=== PATIENT | female | born 1960 | race Caucasian/White ===

== ENCOUNTER 2016-09-23 11:40 | Day surgery (SDC) | payer OTHER ==
[~2016-09-23] VITALS: Ht 142.2 cm; Wt 64.5 kg
[2016-09-23 12:10] VITALS: Ht 142.2 cm; Wt 64.5 kg
[2016-09-23] MEDS ORDERED: [UNRECOGNIZED DRUG - OTHER] (12:36)
[2016-09-23] MEDS ORDERED: KETO75CA PO (12:36)
[2016-09-23] MEDS ORDERED: FERR324T11 PO (12:36)
[2016-09-23] MEDS ORDERED: COZAR (12:36)
[2016-09-23] MEDS ORDERED: GABA250S4 PO (12:36)
[2016-09-23] MEDS ORDERED: OMEP40CA6 PO (12:36)
[2016-09-23] MEDS ORDERED: ASPI-664 PO (12:36)
[2016-09-23] MEDS ORDERED: CITA-104 PO (12:36)
[2016-09-23] MEDS ORDERED: HYDR50TA3 PO (12:36)
[2016-09-23] MEDS ORDERED: DICL100G33 TP (12:36)
[2016-09-23] MEDS ORDERED: GABA300S PO (12:36)
[2016-09-23] MEDS ORDERED: DULO30CA45 PO (12:36)
[2016-09-23] MEDS ORDERED: FAMO40TA38 PO (12:36)
[2016-09-23] MEDS ORDERED: TRAM50TA2 PO (12:36)
[2016-09-23] MEDS ORDERED: LEVO88TA42 PO (12:36)
[2016-09-23] MEDS ORDERED: PANT20TA2 PO (12:36)
[2016-09-23 12:42] VITALS: BP 124/74; PULSE 73; RESP 20
[2016-09-23] MEDS ORDERED: LIDOCAINE 2% (SDV) 5 ML INJ ONE (12:44)
[2016-09-23] MEDS ORDERED: PROPOFOL 20 ML ONE (12:44)
[2016-09-23] MEDS ORDERED: MIDAZOLAM 1 MG/ML 2 ML INJ ONE (12:44)
[2016-09-23] MEDS ORDERED: PANTOPRAZOLE 40 MG INJ ONE (12:44)
[2016-09-23 14:25] VITALS: BP 108/63; RESP 20
--- NOTE | 2016-09-24 08:10 | GILP ---
DATE OF PROCEDURE: 09/23/2016 PREOPERATIVE DIAGNOSIS: Pelvic pain, rectal prolapse operated in the past with a mesh. She has ane grayson. She has rectal bleeding. PROCEDURE: Colonoscopy up to cecum. ANESTHESIOLOGIST: Dr. Stephie Saleh DESCRIPTION OF PROCEDURE: The patient was put in left lateral decubitus after obtaining informed co nsent after EGD. Further sedation monitoring continued by the anesthesiologist. Advanced an Olympus video pediatric colonoscope very carefully all the way to cecum. Appendiceal op ening and ileocecal valve were identified. Cecum, ascending colon unremarkable except one diverticu lum noted near the hepatic flexure, descending colon is normal. Sigmoid colon had some scarring, bu t no active bleeding or diverticulitis. In the rectum due to previous surgery there is a ring-like picture at about 8 to 10 cm level. This was photographed and by retroflexion, no abnormality noted . IMPRESSION: No evidence of rectal prolapse. No evidence of any active disease in the colon except for previous surgical scarring in the rectum due to previous mesh placement in the pelvis, but there is no stricture. Plan will be to observe, follow up as outpatient. Advise her to have upper GI and followup outpatie nt. Dictated By: AGUSTIN SANTIAGO/GRAEME Conf#: [id number] DID#: [id number] CC: GIANCARLO REYES MD;*EndCC*
--- NOTE | 2016-09-24 08:58 | GILP ---
DATE OF PROCEDURE: PREOPERATIVE DIAGNOSES: Anemia, rectal bleeding, abdominal pain. ANESTHESIA: Stephie Saleh MD PROCEDURE DONE: Esophagogastroduodenoscopy. 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 DESCRIPTION OF PROCEDURE: The patient was put in left lateral decubitus. Advanced an Olympus video upper endoscope in the esophagus. 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 Parts of it are movable, but not the fundal part, was fixed. Mild esophagitis a t the GE junction The rest of the stomach was unremarkable, body and antrum normal, but random biops y done for H pylori. Easily entered the duodenum through the pylorus, examination up to second part normal. Scope was wi thdrawn back. Retroflexion done. Easily see the paraesophageal hernia, but parts of it are sliding . Recommend her to have upper GI for hiatal hernia repair, probably even fundoplication. Prior to deidre t motility and 24-hour pH. Meanwhile, will await for biopsy report also. Follow up as outpatient. Will proceed with colonoscopy as planned. Dictated By: AGUSTIN PAUL Conf#: [id number] DID#: [id number] CC: GIANCARLO REYES MD;*EndCC*
== END 2016-09-23 15:59 | disposition home or self-care (01) ==
LOC: GIL 11:40
PROVIDERS: ATTEND Internal Medicine
DX: K44.9 Diaphragmatic hernia without obstruction or gangrene (principal); E03.9 Hypothyroidism, unspecified; E11.9 Type 2 diabetes mellitus without complications; E78.5 Hyperlipidemia, unspecified; I10 Essential (primary) hypertension; Z87.891 Personal history of nicotine dependence
CPT/HCPCS: 43239; 45378; 88305; 88312; C9113; J2250; Z7610

== ENCOUNTER 2017-03-11 10:12 | Inpatient (IN) | payer OTHER ==
[~2017-03-11] VITALS: Ht 142.2 cm; Wt 65.0 kg
[2017-03-11] VITALS (20 sets, daily range): BP systolic 90–131; BP diastolic 19–89; PULSE 75–94; RESP 16–83; Ht 142.2 cm; Wt 65.0 kg
[~2017-03-11 10:12] MED LIST: ASPI-664 PO; CITA-104 PO; COZAR; DICL100G33 TP; DULO30CA45 PO; FAMO40TA38 PO; FERR324T11 PO; GABA250S4 PO; GABA300S PO; HYDR50TA3 PO; KETO75CA PO; LEVO88TA42 PO; OMEP40CA6 PO; PANT20TA2 PO; TRAM50TA2 PO; [UNRECOGNIZED DRUG - OTHER]
[2017-03-11] MEDS ORDERED: POTA20TA15 PO (10:49)
[2017-03-11] MEDS ORDERED: LOSA100T7 PO (10:50)
[2017-03-11] MEDS ORDERED: AMLO5TAB4 PO (10:50)
[2017-03-11] MEDS ORDERED: DEXL60CA2 PO (10:56)
[2017-03-11] MEDS ORDERED: KETO75CA PO (10:59)
--- NOTE | 2017-03-11 12:18 | HPN ---
Date/Time of Note Date/Time of Note DATE: 03/11/17 TIME: 12:18 Interval H&P Admission Note Pt. seen H&P reviewed: No system changes CARRIE GREENE MD Mar 11, 2017 12:18
[2017-03-11] MEDS ORDERED: POLYMYXIN/BACITRACIN 1L IRRIG ONE (12:24)
[2017-03-11] MEDS ORDERED: NEOMYC/POLYMYX/BACIT 30 GM OINT ONE (12:27)
[2017-03-11] MEDS ORDERED: MIDAZOLAM 1 MG/ML 2 ML INJ ONE (13:23)
[2017-03-11] MEDS ORDERED: FENTAnyl 50 MCG/ML VIAL ONE (13:23)
[2017-03-11] MEDS ORDERED: morphine SULFATE/PF (10 MG/10 ML) INJ ONE (13:24)
[2017-03-11] MEDS ORDERED: PHENYLephrine (100 MCG/ML) 5ML SYG ONE (13:48)
[2017-03-11] MEDS ORDERED: TRANEXAMIC ACID 2,000 MG in SOD CHLORIDE 0.9% 100 ML IV ONE (14:00)
--- NOTE | 2017-03-11 15:50 | SIPON ---
Date/Time of Note Date/Time of Note DATE: 03/11/17 TIME: 15:46 Operative Report Preoperative Diagnosis left knee arthritis Postoperative Diagnosis same Operation/Procedure Performed left total knee replacement Surgeon: CARRIE GREENE MD Anesthesia Type: general Estimated Blood Loss: 200 - 250 ml's Transfusion Required: no Specimens bone fragments Grafts/Implants alonso and nephew size four femur, size three tibia cemented Complications: no CARRIE GREENE MD Mar 11, 2017 15:50
[2017-03-11] MEDS ORDERED: ROCURONIUM 50 MG INJ ONE (15:51)
[2017-03-11] MEDS ORDERED: CEFAZOLIN 1 GM INJ ONE (15:51)
[2017-03-11] MEDS ORDERED: ETOMIDATE 20 MG INJ ONE (15:51)
[2017-03-11] MEDS ORDERED: ONDANSETRON 4 MG INJ ONE (15:51)
[2017-03-11] MEDS ORDERED: LIDOCAINE 2% (SDV) 5 ML INJ ONE (15:51)
[2017-03-11] MEDS ORDERED: DIPHENHYDRAMINE 50 MG INJ ONE (16:03)
[2017-03-11] MEDS ORDERED: DIPHENHYDRAMINE 50 MG INJ IV PRN (16:30)
[2017-03-11] MEDS ORDERED: ONDANSETRON 4 MG INJ IV PRN ×2 (16:30→17:30)
[2017-03-11] MEDS ORDERED: morphine (1 MG/ML) 10ML SYRINGE IV PRN (16:30)
[2017-03-11] MEDS ORDERED: NALOXONE (0.4 MG/ML) INJ IV PRN (16:30)
[2017-03-11] MEDS ORDERED: MEPERIDINE 25 MG INJ IV PRN (16:30)
[2017-03-11] MEDS ORDERED: FENTAnyl 50 MCG/ML VIAL IV PRN (16:30)
[2017-03-11 16:49] LABS: HEMATOCRIT 30.4 % (37.0-47.0); HEMOGLOBIN 9.4 g/dl (12.0-16.0)
[2017-03-11] MEDS ORDERED: HYDROCORTISONE 100 MG INJ IV ONE (17:00)
[2017-03-11] MEDS ORDERED: DIPHENHYDRAMINE 50 MG INJ IV ONE (17:00)
[2017-03-11 17:18] LABS: CREATININE 0.75 mg/dl (0.44-1.00); POTASSIUM 3.3 mmol/L (3.5-5.1)
[2017-03-11] MEDS ORDERED: CEFAZOLIN 1 GM/50 ML (PMX) 50 ML IVPB ONE (17:28)
[2017-03-11] MEDS ORDERED: ACETAMINOPHEN 650 MG SUPP PR PRN (17:30)
[2017-03-11] MEDS ORDERED: BISACODYL (EC) 5 MG TAB PO PRN (17:30)
[2017-03-11] MEDS ORDERED: DOCUSATE SODIUM 100 MG CAP PO PRN (17:30)
[2017-03-11] MEDS ORDERED: MAGNESIUM HYDROXIDE 30ML CUP PO PRN (17:30)
[2017-03-11] MEDS ORDERED: CEFAZOLIN 1 GM/50 ML (PMX) 50 ML IVPB SCH (17:30)
[2017-03-11] MEDS ORDERED: ACETAMINOPHEN 325 MG TAB PO PRN (17:30)
[2017-03-11] MEDS ORDERED: NACL 0.9% 3 ML SYG IV SCH (17:30)
--- NOTE | 2017-03-11 17:51 | QN ---
Documentation Comment [id number] ROME GRAVES MD Mar 11, 2017 17:51
[2017-03-11] MEDS ORDERED: POTASSIUM CHLORIDE (SR) 10 MEQ TAB PO ONE (18:00)
[2017-03-11] MEDS: HYDROCODONE/APAP (5/325) TAB PO PRN (18:48)
[2017-03-11] MEDS: SOD CHLORIDE 0.9% 1,000 ML IV SCH (18:53)
--- NOTE | 2017-03-11 19:14 | HP ---
DATE OF ADMISSION: 03/11/2017 HISTORY OF PRESENT ILLNESS: Thank you Dr. Stone, for asking me to see this patient. The patient is a 56-year-old female who underwent left knee surgery and is being seen post procedure. PAST MEDICAL HISTORY: Positive for hypertension and depression. ALLERGIES: NEGATIVE. FAMILY HISTORY: Negative. SOCIAL HISTORY: Negative. MEDICATIONS: 1. Amlodipine. 2. Aspirin. 3. Citalopram. 4. Dexilant. 5. Diclofenac. 6. Cymbalta 30 mg. 7. Hydrochlorothiazide. 8. Ketoprofen. 9. Levothyroxine. 10. Losartan. 11. Potassium. 12. Tramadol. REVIEW OF SYSTEMS: HEENT: Unremarkable. RESPIRATORY: Unremarkable. CARDIOVASCULAR: Unremarkable. EXTREMITIES: Lower extremity complaining of pain. ORAL HYGIENIST: Unremarkable. PHYSICAL EXAMINATION: GENERAL APPEARANCE: The patient is awake and alert. VITAL SIGNS: Pulse 75, blood pressure 131/59. HEENT: Head is atraumatic, normocephalic. Pupils are equal and reactive to light. Pale conjunctiva no icterus. NECK: Supple. No JVD. LUNGS: Clear. CARDIAC: S1, S2, normal. ABDOMEN: Soft, bowel sounds present. No palpable mass or hepatosplenomegaly. EXTREMITIES: There is no cyanosis or clubbing. Pedal pulse of the left lower extremity. noted left lower extremity. ORAL HYGIENIST: The patient is awake, moving both upper and lower extremity. IMPRESSION: 1. The patient has left knee surgery. 2. Hypertension. 3. History of hyperthyroidism. 4. History of depression. 5. Hypokalemia. PLAN: Continue to IV fluid, supplementation. Pain medication and incentive spirometry. Orders were done. Dictated By: Alberto Stockton MD /zoltan/serge /Document#: [id number] BLANK
[2017-03-11] MEDS: traMADol 50 MG TAB PO PRN (20:51)
[2017-03-11] MEDS: CITALOPRAM 20 MG TAB PO SCH (20:52)
[2017-03-12 00:51] VITALS: BP 109/69; RESP 18
[2017-03-12] MEDS: CEFAZOLIN 1 GM/50 ML (PMX) 50 ML IVPB SCH ×2 (01:14→08:15)
[2017-03-12] MEDS: HYDROCODONE/APAP (5/325) TAB PO PRN ×5 (01:14→20:09)
[2017-03-12] MEDS: traMADol 50 MG TAB PO PRN ×3 (05:25→21:47)
[2017-03-12 05:35] LABS: BASOPHILS % 0.1 % (0.0-2.0); EOSINOPHILS % 0.3 % (0.0-7.0); HEMATOCRIT 30.6 % (37.0-47.0); HEMOGLOBIN 9.5 g/dl (12.0-16.0); LYMPHOCYTES # 1.4 10^3/ul (0.8-2.9); LYMPHOCYTES % 13.3 % (15.0-51.0); MEAN CORPUSCULAR HEMOGLOBIN 28.6 pg (29.0-33.0); MEAN CORPUSCULAR VOLUME 92.2 fl (82.0-101.0); MEAN PLATELET VOLUME 10.4 fl (7.4-10.4); MONOCYTE # 0.7 10^3/ul (0.3-0.9); MONOCYTES % 6.4 % (0.0-11.0); NEUTROPHILS % 79.3 % (39.0-77.0); PLATELET COUNT 233 10^3/UL (140-415); RED BLOOD COUNT 3.32 10^6/ul (4.20-5.40); RED CELL DISTRIBUTION WIDTH 13.7 % (11.5-14.5); WHITE BLOOD COUNT 10.6 10^3/ul (4.8-10.8)
[2017-03-12] MEDS ORDERED: PANTOPRAZOLE 40 MG INJ IV SCH (06:00)
[2017-03-12] MEDS: PANTOPRAZOLE (EC) 40 MG TAB PO SCH (06:10)
[2017-03-12] MEDS: LEVOTHYROXINE 88 MCG TAB PO SCH (06:10)
[2017-03-12 06:11] LABS: CALCIUM 9.1 mg/dl (8.4-10.2); CREATININE 0.76 mg/dl (0.44-1.00); POTASSIUM 3.4 mmol/L (3.5-5.1)
[2017-03-12] MEDS ORDERED: KETOROLAC 30 MG INJ IV STA (07:46)
[2017-03-12 08:00] VITALS: BP 142/87; RESP 18
[2017-03-12] MEDS ORDERED: morphine 10 MG INJ IM PRN (08:00)
[2017-03-12] MEDS ORDERED: morphine 4 MG/ML VIAL IV PRN (08:00)
[2017-03-12] MEDS: DULOXETINE 30 MG CAP DR PO SCH (08:10)
[2017-03-12] MEDS: ASPIRIN (EC) 81 MG TAB PO SCH (08:10)
[2017-03-12] MEDS: LOSARTAN 50 MG TAB PO SCH (08:14)
[2017-03-12] MEDS: AMLODIPINE 5 MG TAB PO SCH (08:15)
--- NOTE | 2017-03-12 08:48 | OPR ---
DATE OF OPERATION: 03/12/2017 SURGEON: Rachelle Stone MD UNDERCUTTER: SHANNON Betancourt ANESTHESIA: General, plus spinal. PREOPERATIVE DIAGNOSIS: Severe left knee osteoarthritis with varus deformity. POSTOPERATIVE DIAGNOSIS: Severe left knee osteoarthritis with varus deformity. PROCEDURE PERFORMED: Left total knee replacement arthroplasty using Freeman and Nephew size 4 , size 3 tibia, 13 mm liner, and 23 mm patella button. ESTIMATED BLOOD LOSS: 200 mL. TOURNIQUET TIME: 63 minutes. COMPLICATIONS: None. PROCEDURE: The patient was taken to the operating room and general anesthetic and intubation. The patient was also given a spinal block for pain control. The tourniquet applied on the left thigh. Mancuso catheter inserted sterilely. Two grams of Keflex was given for prophylaxis. Tranexamic acid administered intravenously. The left leg was prepped and draped in the usual sterile manner. tourniquet inflated to 300 mmHg. An anterior incision was made medial arthrotomy. Severe arthritis noted with varus deformity with a deformity in the medial compartment with bone on bone deformity. Patella prepared for a 23 mm button. Femur cut for a size 4 posterior stabilized using the intramedullary guide. A tibia cut for a size 3. A trial reduction was carried out. 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 The 13 provided full, stable extension and stable flexion and extension and medial lateral stressing. Good patella tracking noted. The component was brought in. Antibiotic imed Palacos cement used. Components cemented in satisfactorily. Excess cement removed meticulously. Tourniquet deflated. Hemostasis ascertained. All the transfusion drained and placed into the knee joint. Full extension noted. Flexion of 130 degrees with good tracking. Arthrotomy closed with number 2 fiberwire sutures. Subcutaneous layer with number 1 Vicryl sutures. Skin closed with zackary. Compression bandage and cold therapy applied. Anesthetic reversed. Tourniquet deflated. The patient taken to the recovery room in stable condition. Dictated By: Rachelle Stone MD /zoltan/aayush /Document#: [id number]
[2017-03-12] MEDS ORDERED: CITALOPRAM 20 MG TAB PO SCH (09:00)
[2017-03-12 14:00] VITALS: BP 116/68; RESP 18
[2017-03-12] MEDS: morphine 2 MG INJ IV PRN ×3 (14:00→23:27)
[2017-03-12] MEDS: SOD CHLORIDE 0.9% 1,000 ML IV SCH (17:10)
[2017-03-12 19:27] VITALS: BP 129/69; RESP 19
[2017-03-12] MEDS: CITALOPRAM 20 MG TAB PO SCH (20:08)
--- NOTE | 2017-03-12 23:37 | PN ---
Date/Time of Note Date/Time of Note DATE: 03/12/17 TIME: 23:37 Assessment/Plan VTE Prophylaxis VTE Prophylaxis Intervention: other Lines/Catheters IV Catheter Type (from Nrs): Peripheral IV Urinary Cath still in place: No Assessment/Plan Chief Complaint/Hosp Course IMPRESSION: 1. The patient has left knee surgery. 2. Hypertension. 3. History of hyperthyroidism. 4. History of depression. 5. Hypokalemia. PLAN KCL Problems: Subjective 24 Hr Interval Summary Gastrointestinal: no complaints Genitourinary: no complaints Musculoskeletal: restricted range of motion Exam/Review of Systems Vital Signs Vitals Vital Signs Date Time Temp Pulse Resp B/P Pulse Ox O2 Delivery O2 Flow Rate FiO2 03/12/17 19:27 98.1 88 19 129/69 100 03/11/17 21:30 Nasal Cannula 03/11/17 18:45 3.0 Intake and Output 03/11/17 03/11/17 03/12/17 15:00 23:00 07:00 Intake Total 1410 ml 1075 ml Output Total 630 ml 580 ml Balance 780 ml 495 ml Exam Respiratory: clear to auscultation Cardiovascular: regular rate and rhythm Gastrointestinal: soft Musculoskeletal: nl extremities to inspection Extremities: normal pulses Results Result Diagram: 03/12/17 0500 03/12/17 0500 Results 24 hrs Laboratory Tests Test 03/12/17 05:00 White Blood Count 10.6 Red Blood Count 3.32 L Hemoglobin 9.5 L Hematocrit 30.6 L Mean Corpuscular Volume 92.2 Mean Corpuscular Hemoglobin 28.6 L Mean Corpuscular Hemoglobin Concent 31.0 L Red Cell Distribution Width 13.7 Platelet Count 233 Mean Platelet Volume 10.4 Neutrophils % 79.3 H Lymphocytes % 13.3 L Monocytes % 6.4 Eosinophils % 0.3 Basophils % 0.1 Nucleated Red Blood Cells % 0.0 Neutrophils # (Manual) 8.4 H Lymphocytes # 1.4 Monocytes # 0.7 Eosinophils # 0.0 Basophils # 0.0 Nucleated Red Blood Cells # 0.0 Sodium Level 139 Potassium Level 3.4 L Chloride Level 100 Carbon Dioxide Level 31 Anion Gap 11 Blood Urea Nitrogen 21 H Creatinine 0.76 Glucose Level 121 Calcium Level 9.1 Medications Medications Current Medications Amlodipine Besylate (Norvasc) 5 mg DAILY PO Last administered on 03/12/17 08:15 ; Admin Dose 5 MG; Start 03/12/17 at 09:00 Aspirin (Halfprin) 162 mg DAILY PO Last administered on 03/12/17 08:10; Admin Dose 162 MG; Start 03/12/17 at 09:00 Duloxetine HCl (Cymbalta) 30 mg DAILY PO Last administered on 03/12/17 08:10; Admin Dose 30 MG; Start 03/12/17 at 09:00 Losartan Potassium 100 mg 100 mg DAILY PO Last administered on 03/12/17 08:14; Admin Dose 100 MG; Start 03/12/17 at 09:00 Sodium Chloride (NS) 1,000 ml @ 30 mls/hr Q24H IV Last administered on 18:53; Admin Dose 30 MLS/HR; Start 03/11/17 at 17:10 Ondansetron HCl (Zofran Inj) 4 mg Q6H PRN IV NAUSEA AND/OR VOMITING; Start 03/11 at 17:30 Acetaminophen (Tylenol Tab) 650 mg Q6H PRN PO PAIN LEVEL 1-3 OR FEVER; Start at 17:30 Acetaminophen (Tylenol Supp) 650 mg Q6H PRN [place] PAIN LEVEL 1-3 OR FEVER; Start 03/11/17 at 17:30 Docusate Sodium (Colace) 100 mg Q12H PRN PO CONSTIPATION; Start 03/11/17 at 17: 30 Magnesium Hydroxide (Milk Of Mag) 30 ml DAILY PRN PO CONSTIPATION; Start at 17:30 Bisacodyl (Dulcolax) 5 mg DAILY PRN PO CONSTIPATION; Start 03/11/17 at 17:30 Citalopram Hydrobromide (Celexa) 40 mg QHS PO Last administered on 03/12/17 20: 08; Admin Dose 40 MG; Start 03/11/17 at 21:00 Pantoprazole (Protonix Tab) 40 mg DAILY@06 PO Last administered on 03/12/17 06: 10; Admin Dose 40 MG; Start 03/12/17 at 06:00 Acetaminophen/ Hydrocodone Bitart ([place] (5/325)) 1 tab Q4H PRN PO MODERATE PAIN LEVEL 4-6 Last administered on 03/12/17 20:09; Admin Dose 1 TAB; Start 9/6 /17 at 09:00 Tramadol HCl (Ultram) 100 mg Q6H PRN PO PAIN LEVEL 1-5 Last administered on 03/12 21:47; Admin Dose 100 MG; Start 03/12/17 at 12:00 Morphine Sulfate (morphine) 2 mg Q4H PRN IV PAIN LEVEL 6-10 Last administered on 03/12/17 23:27; Admin Dose 2 MG; Start 03/12/17 at 12:00 ROME GRAVES MD Mar 12, 2017 23:37
[2017-03-12 23:47] VITALS: BP 127/82; RESP 20
[2017-03-13] MEDS ORDERED: POTASSIUM CHLORIDE (SR) 10 MEQ TAB PO ONE
[2017-03-13] MEDS: HYDROCODONE/APAP (5/325) TAB PO PRN ×3 (03:00→19:41)
[2017-03-13 05:31] LABS: BASOPHILS % 0.2 % (0.0-2.0); EOSINOPHILS # 0.1 10^3/ul (0.0-0.5); EOSINOPHILS % 1.1 % (0.0-7.0); HEMATOCRIT 31.3 % (37.0-47.0); HEMOGLOBIN 9.8 g/dl (12.0-16.0); LYMPHOCYTES % 10.2 % (15.0-51.0); MEAN CORPUSCULAR HEMOGLOBIN 28.2 pg (29.0-33.0); MEAN CORPUSCULAR HGB CONC 31.3 g/dl (32.0-37.0); MEAN CORPUSCULAR VOLUME 89.9 fl (82.0-101.0); MEAN PLATELET VOLUME 10.3 fl (7.4-10.4); MONOCYTE # 0.6 10^3/ul (0.3-0.9); MONOCYTES % 5.9 % (0.0-11.0); NEUTROPHILS % 82.1 % (39.0-77.0); PLATELET COUNT 231 10^3/UL (140-415); RED BLOOD COUNT 3.48 10^6/ul (4.20-5.40); RED CELL DISTRIBUTION WIDTH 13.6 % (11.5-14.5); WHITE BLOOD COUNT 9.3 10^3/ul (4.8-10.8)
[2017-03-13] MEDS: morphine 2 MG INJ IV PRN ×2 (05:34→09:35)
[2017-03-13] MEDS: PANTOPRAZOLE (EC) 40 MG TAB PO SCH (05:34)
[2017-03-13 05:51] LABS: CALCIUM 9.5 mg/dl (8.4-10.2); CREATININE 0.63 mg/dl (0.44-1.00); POTASSIUM 3.8 mmol/L (3.5-5.1)
[2017-03-13] MEDS: LEVOTHYROXINE 88 MCG TAB PO SCH (06:41)
[2017-03-13 07:22] VITALS: BP 163/88; RESP 18
[2017-03-13] MEDS: traMADol 50 MG TAB PO PRN ×2 (07:39→20:32)
[2017-03-13] MEDS: ASPIRIN (EC) 81 MG TAB PO SCH (08:15)
[2017-03-13] MEDS: AMLODIPINE 5 MG TAB PO SCH (08:15)
[2017-03-13] MEDS: DULOXETINE 30 MG CAP DR PO SCH (08:15)
[2017-03-13] MEDS: LOSARTAN 50 MG TAB PO SCH (08:15)
[2017-03-13 08:55] VITALS: BP 133/78; PULSE 99
[2017-03-13] MEDS ORDERED: KETOROLAC 30 MG INJ IV PRN (09:30)
[2017-03-13 14:20] VITALS: BP 137/90; RESP 18
[2017-03-13] MEDS: SOD CHLORIDE 0.9% 1,000 ML IV SCH (17:10)
--- NOTE | 2017-03-13 17:44 | PN ---
Date/Time of Note Date/Time of Note DATE: 03/13/17 TIME: 17:43 Assessment/Plan VTE Prophylaxis VTE Prophylaxis Intervention: other Lines/Catheters [facility] Saline Lock Urinary Cath still in place: No Assessment/Plan Chief Complaint/Hosp Course IMPRESSION: 1. The patient has left knee surgery. 2. Hypertension. 3. History of hyperthyroidism. 4. History of depression. 5. Hypokalemia. PLAN lovenox per ortho Problems: Subjective 24 Hr Interval Summary Respiratory: no complaints Cardiovascular: no complaints Musculoskeletal: other (knee pain and swelling), restricted range of motion Exam/Review of Systems Vital Signs Vitals Vital Signs Date Time Temp Pulse Resp B/P Pulse Ox O2 Delivery O2 Flow Rate FiO2 03/13/17 14:20 97.9 92 18 137/90 99 03/11/17 21:30 Nasal Cannula 03/11/17 18:45 3.0 Intake and Output 03/12/17 03/12/17 03/13/17 15:00 23:00 07:00 Intake Total 960 ml 900 ml Output Total 700 ml 650 ml Balance 260 ml 250 ml Exam Neck: supple Respiratory: clear to auscultation Cardiovascular: regular rate and rhythm Gastrointestinal: bowel sounds (+), soft Extremities: edema Results Result Diagram: 03/13/17 0422 03/13/17 0422 Results 24 hrs Laboratory Tests Test 03/13/17 04:22 White Blood Count 9.3 Red Blood Count 3.48 L Hemoglobin 9.8 L Hematocrit 31.3 L Mean Corpuscular Volume 89.9 Mean Corpuscular Hemoglobin 28.2 L Mean Corpuscular Hemoglobin Concent 31.3 L Red Cell Distribution Width 13.6 Platelet Count 231 Mean Platelet Volume 10.3 Neutrophils % 82.1 H Lymphocytes % 10.2 L Monocytes % 5.9 Eosinophils % 1.1 Basophils % 0.2 Nucleated Red Blood Cells % 0.0 Neutrophils # (Manual) 7.6 H Lymphocytes # 1.0 Monocytes # 0.6 Eosinophils # 0.1 Basophils # 0.0 Nucleated Red Blood Cells # 0.0 Sodium Level 138 Potassium Level 3.8 Chloride Level 101 Carbon Dioxide Level 31 Anion Gap 10 Blood Urea Nitrogen 13 Creatinine 0.63 Glucose Level 118 Calcium Level 9.5 Medications Medications Current Medications Amlodipine Besylate (Norvasc) 5 mg DAILY PO Last administered on 03/13/17 08:15 ; Admin Dose 5 MG; Start 03/12/17 at 09:00 Aspirin (Halfprin) 162 mg DAILY PO Last administered on 03/13/17 08:15; Admin Dose 162 MG; Start 03/12/17 at 09:00 Duloxetine HCl (Cymbalta) 30 mg DAILY PO Last administered on 03/13/17 08:15; Admin Dose 30 MG; Start 03/12/17 at 09:00 Losartan Potassium 100 mg 100 mg DAILY PO Last administered on 03/13/17 08:15; Admin Dose 100 MG; Start 03/12/17 at 09:00 Sodium Chloride (NS) 1,000 ml @ 30 mls/hr Q24H IV Last administered on 18:53; Admin Dose 30 MLS/HR; Start 03/11/17 at 17:10 Ondansetron HCl (Zofran Inj) 4 mg Q6H PRN IV NAUSEA AND/OR VOMITING; Start 03/11 at 17:30 Acetaminophen (Tylenol Tab) 650 mg Q6H PRN PO PAIN LEVEL 1-3 OR FEVER; Start at 17:30 Acetaminophen (Tylenol Supp) 650 mg Q6H PRN [place] PAIN LEVEL 1-3 OR FEVER; Start 03/11/17 at 17:30 Docusate Sodium (Colace) 100 mg Q12H PRN PO CONSTIPATION; Start 03/11/17 at 17: 30 Magnesium Hydroxide (Milk Of Mag) 30 ml DAILY PRN PO CONSTIPATION; Start at 17:30 Bisacodyl (Dulcolax) 5 mg DAILY PRN PO CONSTIPATION; Start 03/11/17 at 17:30 Citalopram Hydrobromide (Celexa) 40 mg QHS PO Last administered on 03/12/17 20: 08; Admin Dose 40 MG; Start 03/11/17 at 21:00 Pantoprazole (Protonix Tab) 40 mg DAILY@06 PO Last administered on 03/13/17 05: 34; Admin Dose 40 MG; Start 03/12/17 at 06:00 Acetaminophen/ Hydrocodone Bitart ([place] (5/325)) 1 tab Q4H PRN PO MODERATE PAIN LEVEL 4-6 Last administered on 03/13/17 03:00; Admin Dose 1 TAB; Start 03/12 at 09:00 Tramadol HCl (Ultram) 100 mg Q6H PRN PO PAIN LEVEL 1-5 Last administered on 03/13 07:39; Admin Dose 100 MG; Start 03/12/17 at 12:00 Morphine Sulfate (morphine) 2 mg Q4H PRN IV PAIN LEVEL 6-10 Last administered on 03/13/17 09:35; Admin Dose 2 MG; Start 03/12/17 at 12:00 Ketorolac Tromethamine (Toradol) 30 mg Q8H PRN IV PAIN Last administered on 03/13 16:18; Admin Dose 30 MG; Start 03/13/17 at 09:30; Stop 03/16/17 at 09:29 Acetaminophen/ Hydrocodone Bitart ([place] (5/325)) 2 tab Q4H PRN PO PAIN LEVEL 6 -10 Last administered on 03/13/17 12:35; Admin Dose 2 TAB; Start 03/13/17 at 09: 30 ROME GRAVES MD Mar 13, 2017 17:44
[2017-03-13 19:25] VITALS: BP 130/83; RESP 18
[2017-03-13] MEDS: CITALOPRAM 20 MG TAB PO SCH (20:32)
[2017-03-14] MEDS: HYDROCODONE/APAP (5/325) TAB PO PRN ×6 (00:52→22:38)
[2017-03-14 02:00] VITALS: BP 119/70; RESP 18
[2017-03-14] MEDS: PANTOPRAZOLE (EC) 40 MG TAB PO SCH (06:30)
[2017-03-14] MEDS: LEVOTHYROXINE 88 MCG TAB PO SCH (06:30)
[2017-03-14 06:36] LABS: BASOPHILS % 0.3 % (0.0-2.0); EOSINOPHILS # 0.3 10^3/ul (0.0-0.5); EOSINOPHILS % 4.2 % (0.0-7.0); HEMATOCRIT 29.1 % (37.0-47.0); HEMOGLOBIN 9.2 g/dl (12.0-16.0); LYMPHOCYTES # 1.8 10^3/ul (0.8-2.9); LYMPHOCYTES % 27.4 % (15.0-51.0); MEAN CORPUSCULAR HEMOGLOBIN 28.8 pg (29.0-33.0); MEAN CORPUSCULAR HGB CONC 31.6 g/dl (32.0-37.0); MEAN CORPUSCULAR VOLUME 91.2 fl (82.0-101.0); MEAN PLATELET VOLUME 10.1 fl (7.4-10.4); MONOCYTE # 0.6 10^3/ul (0.3-0.9); MONOCYTES % 8.6 % (0.0-11.0); PLATELET COUNT 261 10^3/UL (140-415); RED BLOOD COUNT 3.19 10^6/ul (4.20-5.40); RED CELL DISTRIBUTION WIDTH 13.6 % (11.5-14.5); WHITE BLOOD COUNT 6.7 10^3/ul (4.8-10.8)
[2017-03-14 07:28] VITALS: BP 134/85; RESP 20
[2017-03-14] MEDS: DULOXETINE 30 MG CAP DR PO SCH (08:16)
[2017-03-14] MEDS: AMLODIPINE 5 MG TAB PO SCH (08:16)
[2017-03-14] MEDS: ASPIRIN (EC) 81 MG TAB PO SCH (08:16)
[2017-03-14] MEDS: LOSARTAN 50 MG TAB PO SCH (08:17)
[2017-03-14] MEDS: ENOXAPARIN 40 MG/0.4 ML SYG SC SCH (08:23)
--- NOTE | 2017-03-14 12:42 | PN ---
Date/Time of Note Date/Time of Note DATE: 03/14/17 TIME: 12:41 Assessment/Plan VTE Prophylaxis VTE Prophylaxis Intervention: LMWH Lines/Catheters IV C[facility] Type [facility] Saline Lock Urinary Cath still in place: No Assessment/Plan Chief Complaint/Hosp Course 1. S/p left knee arthroplasty 2. Hypertension, controlled. 3. History of hyperthyroidism. 4. History of depression. 5. Hypokalemia, resolved 6. Anemia Problems: Assessment/Plan 1, Continue current regime Subjective 24 Hr Interval Summary Constitutional: improved, no complaints Exam/Review of Systems Vital Signs Vitals Vital Signs Date Time Temp Pulse Resp B/P Pulse Ox O2 Delivery O2 Flow Rate FiO2 03/14/17 07:28 97.7 84 20 134/85 95 03/11/17 21:30 Nasal Cannula 03/11/17 18:45 3.0 Intake and Output 03/13/17 03/13/17 03/14/17 15:00 23:00 07:00 Intake Total 600 ml 500 ml Output Total 800 ml Balance -200 ml 500 ml Exam Constitutional: alert, oriented Musculoskeletal: joint tenderness (left knee) Results Result Diagram: 03/14/17 0504 03/13/17 0422 Results 24 hrs Laboratory Tests Test 03/14/17 05:04 White Blood Count 6.7 # Red Blood Count 3.19 L Hemoglobin 9.2 L Hematocrit 29.1 L Mean Corpuscular Volume 91.2 Mean Corpuscular Hemoglobin 28.8 L Mean Corpuscular Hemoglobin Concent 31.6 L Red Cell Distribution Width 13.6 Platelet Count 261 Mean Platelet Volume 10.1 Neutrophils % 59.0 Lymphocytes % 27.4 Monocytes % 8.6 Eosinophils % 4.2 Basophils % 0.3 Nucleated Red Blood Cells % 0.0 Neutrophils # (Manual) 3.9 Lymphocytes # 1.8 Monocytes # 0.6 Eosinophils # 0.3 Basophils # 0.0 Nucleated Red Blood Cells # 0.0 Medications Medications Current Medications Amlodipine Besylate (Norvasc) 5 mg DAILY PO Last administered on 03/14/17 08:16 ; Admin Dose 5 MG; Start 03/12/17 at 09:00 Aspirin (Halfprin) 162 mg DAILY PO Last administered on 03/14/17 08:16; Admin Dose 162 MG; Start 03/12/17 at 09:00 Duloxetine HCl (Cymbalta) 30 mg DAILY PO Last administered on 03/14/17 08:16; Admin Dose 30 MG; Start 03/12/17 at 09:00 Losartan Potassium 100 mg 100 mg DAILY PO Last administered on 03/14/17 08:17; Admin Dose 100 MG; Start 03/12/17 at 09:00 Sodium Chloride (NS) 1,000 ml @ 30 mls/hr Q24H IV Last administered on 18:53; Admin Dose 30 MLS/HR; Start 03/11/17 at 17:10 Ondansetron HCl (Zofran Inj) 4 mg Q6H PRN IV NAUSEA AND/OR VOMITING; Start 03/11 at 17:30 Acetaminophen (Tylenol Tab) 650 mg Q6H PRN PO PAIN LEVEL 1-3 OR FEVER; Start at 17:30 Acetaminophen (Tylenol Supp) 650 mg Q6H PRN [place] PAIN LEVEL 1-3 OR FEVER; Start 03/11/17 at 17:30 Docusate Sodium (Colace) 100 mg Q12H PRN PO CONSTIPATION; Start 03/11/17 at 17: 30 Magnesium Hydroxide (Milk Of Mag) 30 ml DAILY PRN PO CONSTIPATION; Start at 17:30 Bisacodyl (Dulcolax) 5 mg DAILY PRN PO CONSTIPATION; Start 03/11/17 at 17:30 Citalopram Hydrobromide (Celexa) 40 mg QHS PO Last administered on 03/13/17 20: 32; Admin Dose 40 MG; Start 03/11/17 at 21:00 Pantoprazole (Protonix Tab) 40 mg DAILY@06 PO Last administered on 03/14/17 06: 30; Admin Dose 40 MG; Start 03/12/17 at 06:00 Acetaminophen/ Hydrocodone Bitart ([place] (5/325)) 1 tab Q4H PRN PO MODERATE PAIN LEVEL 4-6 Last administered on 03/13/17 03:00; Admin Dose 1 TAB; Start 03/12 at 09:00 Tramadol HCl (Ultram) 100 mg Q6H PRN PO PAIN LEVEL 1-5 Last administered on 03/13 20:32; Admin Dose 100 MG; Start 03/12/17 at 12:00 Morphine Sulfate (morphine) 2 mg Q4H PRN IV PAIN LEVEL 6-10 Last administered on 03/13/17 09:35; Admin Dose 2 MG; Start 03/12/17 at 12:00 Ketorolac Tromethamine (Toradol) 30 mg Q8H PRN IV PAIN Last administered on 03/13 16:18; Admin Dose 30 MG; Start 03/13/17 at 09:30; Stop 03/16/17 at 09:29 Acetaminophen/ Hydrocodone Bitart ([place] (5/325)) 2 tab Q4H PRN PO PAIN LEVEL 6 -10 Last administered on 03/14/17 10:25; Admin Dose 2 TAB; Start 03/13/17 at 09: 30 Enoxaparin Sodium (Lovenox) 40 mg DAILY SC Last administered on 03/14/17 08:23 ; Admin Dose 40 MG; Start 03/14/17 at 09:00 LAURA CATHERINE Mar 14, 2017 12:42
[2017-03-14 14:48] VITALS: BP 115/77; RESP 20
[2017-03-14] MEDS: SOD CHLORIDE 0.9% 1,000 ML IV SCH (16:10)
[2017-03-14 20:00] VITALS: BP 151/86; RESP 20
[2017-03-14] MEDS: traMADol 50 MG TAB PO PRN (20:06)
[2017-03-14] MEDS: CITALOPRAM 20 MG TAB PO SCH (20:06)
[2017-03-15] MEDS: HYDROCODONE/APAP (5/325) TAB PO PRN ×4 (02:26→14:14)
[2017-03-15 02:32] VITALS: BP 136/80; RESP 20
[2017-03-15 05:24] LABS: BASOPHILS % 0.4 % (0.0-2.0); EOSINOPHILS # 0.3 10^3/ul (0.0-0.5); EOSINOPHILS % 4.5 % (0.0-7.0); HEMATOCRIT 29.5 % (37.0-47.0); LYMPHOCYTES # 1.8 10^3/ul (0.8-2.9); LYMPHOCYTES % 24.8 % (15.0-51.0); MEAN CORPUSCULAR HEMOGLOBIN 27.7 pg (29.0-33.0); MEAN CORPUSCULAR HGB CONC 30.5 g/dl (32.0-37.0); MEAN CORPUSCULAR VOLUME 90.8 fl (82.0-101.0); MEAN PLATELET VOLUME 9.9 fl (7.4-10.4); MONOCYTE # 0.6 10^3/ul (0.3-0.9); PLATELET COUNT 286 10^3/UL (140-415); RED BLOOD COUNT 3.25 10^6/ul (4.20-5.40); RED CELL DISTRIBUTION WIDTH 13.6 % (11.5-14.5); WHITE BLOOD COUNT 7.1 10^3/ul (4.8-10.8)
[2017-03-15 05:39] LABS: CALCIUM 9.8 mg/dl (8.4-10.2); CREATININE 0.73 mg/dl (0.44-1.00)
[2017-03-15] MEDS: PANTOPRAZOLE (EC) 40 MG TAB PO SCH (06:24)
[2017-03-15] MEDS: LEVOTHYROXINE 88 MCG TAB PO SCH (06:24)
[2017-03-15 07:35] VITALS: BP 139/84; RESP 19
[2017-03-15] MEDS: LOSARTAN 50 MG TAB PO SCH (08:19)
[2017-03-15] MEDS: DULOXETINE 30 MG CAP DR PO SCH (08:19)
[2017-03-15] MEDS: ASPIRIN (EC) 81 MG TAB PO SCH (08:19)
[2017-03-15] MEDS: ENOXAPARIN 40 MG/0.4 ML SYG SC SCH (08:20)
[2017-03-15] MEDS: AMLODIPINE 5 MG TAB PO SCH (08:20)
[2017-03-15] MEDS: traMADol 50 MG TAB PO PRN ×2 (08:23→16:19)
[2017-03-15 13:27] VITALS: BP 127/72; RESP 18
--- NOTE | 2017-03-15 15:52 | PDOCDIS ---
Discharge Instructions DIAGNOSIS Discharge Diagnosis left knee arthroplasty CONDITION Patient Condition: Good HOME CARE INSTRUCTIONS: Diet Instructions: RegularSpecial Diet: REGULAR ACTIVITY: Activity Restrictions: Slowly Increase Activity Rest between Activity Avoid heavy lifting Do not Drive Avoid Heavy Housework Bathing Restrictions: ShowerActivity Restrictions Comment: Change dressing after showering FOLLOW UP/APPOINTMENTS Follow-up Plan Dr Stone 1 week REFERRALS Agency Name and Phone Number: [facility]/WORK RELEASE May return to School/Work with: With Restrictions LAURA CATHERINE Mar 15, 2017 15:52
--- NOTE | 2017-03-15 16:01 | PN ---
LAURA CATHERINE 03/15/17 1601: Date/Time of Note Date/Time of Note DATE: 03/15/17 TIME: 16:01 Assessment/Plan VTE Prophylaxis VTE Prophylaxis Intervention: ambulation Lines/Catheters IV Catheter Type (from Nrs): [place] Urinary Cath still in place: No Assessment/Plan Chief Complaint/Hosp Course 1. S/p left knee arthroplasty 2. Hypertension, controlled. 3. History of hyperthyroidism. 4. History of depression. 5. Hypokalemia, resolved 6. Anemia Problems: Assessment/Plan 1. Discharge home Subjective 24 Hr Interval Summary Constitutional: improved, no complaints Exam/Review of Systems Vital Signs Vitals Vital Signs Date Time Temp Pulse Resp B/P Pulse Ox O2 Delivery O2 Flow Rate FiO2 03/15/17 13:27 98.1 80 18 127/72 97 03/11/17 21:30 Nasal Cannula 03/11/17 18:45 3.0 Intake and Output 03/14/17 03/14/17 03/15/17 15:00 23:00 07:00 Intake Total 1040 ml 750 ml Output Total 300 ml Balance 740 ml 750 ml Exam Eyes: nl conjunctiva ENMT: nl external ears & nose Neck: supple Respiratory: clear to auscultation Results Result Diagram: 03/15/17 0436 03/15/17 0436 Results 24 hrs Laboratory Tests Test 03/15/17 04:36 White Blood Count 7.1 Red Blood Count 3.25 L Hemoglobin 9.0 L Hematocrit 29.5 L Mean Corpuscular Volume 90.8 Mean Corpuscular Hemoglobin 27.7 L Mean Corpuscular Hemoglobin Concent 30.5 L Red Cell Distribution Width 13.6 Platelet Count 286 Mean Platelet Volume 9.9 Neutrophils % 61.0 Lymphocytes % 24.8 Monocytes % 9.0 Eosinophils % 4.5 Basophils % 0.4 Nucleated Red Blood Cells % 0.0 Neutrophils # (Manual) 4.3 Lymphocytes # 1.8 Monocytes # 0.6 Eosinophils # 0.3 Basophils # 0.0 Nucleated Red Blood Cells # 0.0 Sodium Level 140 Potassium Level 4.0 Chloride Level 105 Carbon Dioxide Level 29 Anion Gap 10 Blood Urea Nitrogen 16 Creatinine 0.73 Glucose Level 97 Calcium Level 9.8 Medications Medications Current Medications Amlodipine Besylate (Norvasc) 5 mg DAILY PO Last administered on 03/15/17t 08:20 ; Admin Dose 5 MG; Start 03/12/17 at 09:00 Aspirin (Halfprin) 162 mg DAILY PO Last administered on 03/15/17 08:19; Admin Dose 162 MG; Start 03/12/17 at 09:00 Duloxetine HCl (Cymbalta) 30 mg DAILY PO Last administered on 03/15/17 08:19; Admin Dose 30 MG; Start 03/12/17 at 09:00 Losartan Potassium 100 mg 100 mg DAILY PO Last administered on 03/15/17 08:19; Admin Dose 100 MG; Start 03/12/17 at 09:00 Sodium Chloride (NS) 1,000 ml @ 30 mls/hr Q24H IV Last administered on 18:53; Admin Dose 30 MLS/HR; Start 03/11/17 at 17:10 Ondansetron HCl (Zofran Inj) 4 mg Q6H PRN IV NAUSEA AND/OR VOMITING; Start 03/11 at 17:30 Acetaminophen (Tylenol Tab) 650 mg Q6H PRN PO PAIN LEVEL 1-3 OR FEVER; Start at 17:30 Acetaminophen (Tylenol Supp) 650 mg Q6H PRN MD PAIN LEVEL 1-3 OR FEVER; Start 03/11/17 at 17:30 Docusate Sodium (Colace) 100 mg Q12H PRN PO CONSTIPATION; Start 03/11/17 at 17: 30 Magnesium Hydroxide (Milk Of Mag) 30 ml DAILY PRN PO CONSTIPATION; Start at 17:30 Bisacodyl (Dulcolax) 5 mg DAILY PRN PO CONSTIPATION; Start 03/11/17 at 17:30 Citalopram Hydrobromide (Celexa) 40 mg QHS PO Last administered on 03/14/17 20: 06; Admin Dose 40 MG; Start 03/11/17 at 21:00 Pantoprazole (Protonix Tab) 40 mg DAILY@06 PO Last administered on 03/15/17 06: 24; Admin Dose 40 MG; Start 03/12/17 at 06:00 Acetaminophen/ Hydrocodone Bitart ([place] (5/325)) 1 tab Q4H PRN PO MODERATE PAIN LEVEL 4-6 Last administered on 03/13/17 03:00; Admin Dose 1 TAB; Start 03/12 at 09:00 Tramadol HCl (Ultram) 100 mg Q6H PRN PO PAIN LEVEL 1-5 Last administered on 03/15 08:23; Admin Dose 100 MG; Start 03/12/17 at 12:00 Morphine Sulfate (morphine) 2 mg Q4H PRN IV PAIN LEVEL 6-10 Last administered on 03/13/17 09:35; Admin Dose 2 MG; Start 03/12/17 at 12:00 Ketorolac Tromethamine (Toradol) 30 mg Q8H PRN IV PAIN Last administered on 03/13 16:18; Admin Dose 30 MG; Start 03/13/17 at 09:30; Stop 03/16/17 at 09:29 Acetaminophen/ Hydrocodone Bitart ([place] (5/325)) 2 tab Q4H PRN PO PAIN LEVEL 6 -10 Last administered on 03/15/17 14:14; Admin Dose 2 TAB; Start 03/13/17 at 09: 30 Enoxaparin Sodium (Lovenox) 40 mg DAILY SC Last administered on 03/14/17 08:23 ; Admin Dose 40 MG; Start 03/14/17 at 09:00 LORENA GOMEZ MD 03/15/17 1617: Assessment/Plan Assessment/Plan Assessment/Plan D/C home with PT and antocoagulants Exam/Review of Systems Results Result Diagram: 03/15/17 0436 03/15/17 0436 LAURA CATHERINE Mar 15, 2017 16:01 LORENA GOMEZ MD Mar 15, 2017 16:17
== END 2017-03-15 17:16 | disposition home or self-care (01) | DRG 470 ==
LOC: REC 10:12 → MS1 17:49
PROVIDERS: ADMIT Specialist; ATTEND Specialist
PROC: 0SRD0J9 Replacement of Left Knee Joint with Synthetic Substitute, Cemented, Open Approach (ICD-10-PCS; principal; 2017-03-11 12:00)
DX: M17.12 Unilateral primary osteoarthritis, left knee (principal); I10 Essential (primary) hypertension; F32.9 Major depressive disorder, single episode, unspecified; E87.6 Hypokalemia; M21.162 Varus deformity, not elsewhere classified, left knee; E03.9 Hypothyroidism, unspecified; D64.9 Anemia, unspecified
CPT/HCPCS: 80048; 84132; 85014; 85018; 85025; 87086; 88304; 88311; 97110; 97116; 97163; 97530; C1713; C9113; J0690; J1200; J1650; J1720; J1885; J2250; J2270; J2274; J2370; J2405; J3010; J7030